=== PATIENT | female | born 1990 | race Caucasian/White ===

== ENCOUNTER 2016-09-12 20:01 | Emergency (ER) | payer BC ==
[2016-09-12] MEDS ORDERED: SODIUM CHLORIDE 0.9% 1,000 ML IV ONE (20:50)
[2016-09-12] MEDS ORDERED: HYDROmorphone 1 MG/ML 1 ML SYRINGE IVP STA (20:51)
--- NOTE | 2016-09-12 20:53 | ED ---
Back Pain HPI - General Chief Complaint: Back Pain/Injury Stated Complaint: Back Pain Time Seen by Provider: 09/12/16 20:17 Source: patient, RN notes reviewed Limitations: no limitations - History of Present Illness Initial Comments: Patient is a 26-year-old female presents to the emergency room for evaluation of bilateral flank/low back pain. Patient states pain began around 3:30 this morning. Patient states the pain is not subsiding. Patient does state she has a history of kidney stones. Patient states pain feels somewhat similar. Patient states that today she began developing burning during urination. Patient denies any history of STDs. He denies any abnormal vaginal discharge or discomfort. Patient denies abdominal pain. Patient denies fevers or chills. Patient states pain is worse with movement. Patient denies recent heavy lifting. Patient denies recent changes in physical activity. Patient denies recent falls or trauma to her low back. Patient denies headache or dizziness. Patient denies chest pain or shortness of breath. Patient denies any blood in the urine. - Related Data Home Medications Medication Instructions Recorded Confirmed Acetaminophen Tab [Tylenol Tab] 500 - 1,000 mg PO Q6HR PRN 09/12/16 09/12/16 Previous Rx's Medication Instructions Recorded Ciprofloxacin HCl [Cipro] 500 mg PO Q12HR 10 Days 09/12/16 HYDROcodone/APAP 5-325MG [Irwin 1 tab PO Q6HR PRN #12 tab 09/12/16 5-325] Ibuprofen [Motrin] 600 mg PO Q6HR PRN #20 tab 09/12/16 Ondansetron Odt [Zofran Odt] 4 mg PO Q8HR PRN #12 tab 09/12/16 Allergies Allergy/AdvReac Type Severity Reaction Status Date / Time No Known Allergies Allergy Verified 09/12/16 20:20 Review of Systems ROS Statement: Those systems with pertinent positive or pertinent negative responses have been documented in the HPI. ROS Other: All systems not noted in ROS Statement are negative. Past Medical History Past Medical History: No Reported History Additional Past Medical History / Comment(s): kidney stones History of Any Multi-Drug Resistant Organisms: None Reported Additional Past Surgical History / Comment(s): stent in kidney Past Psychological History: ADD/ADHD Smoking Status: Current every day smoker Past Alcohol Use History: Occasional Past Drug Use History: None Reported General Exam - General Exam Comments Initial Comments: Sitting up in exam room appears uncomfortable secondary to pain, no acute distress. Limitations: no limitations General appearance: alert, in no apparent distress Head exam: Present: atraumatic, normocephalic, normal inspection Eye exam: Present: normal appearance ENT exam: Present: normal exam Neck exam: Present: normal inspection Respiratory exam: Present: normal lung sounds bilaterally. Absent: respiratory distress Cardiovascular Exam: Present: normal rhythm, tachycardia, normal heart sounds GI/Abdominal exam: Present: soft, normal bowel sounds. Absent: distended, tenderness, guarding, rebound, rigid Extremities exam: Present: normal inspection Back exam: Present: normal inspection, CVA tenderness (R), CVA tenderness (L) Neurological exam: Present: alert, oriented X3, CN II-XII intact Psychiatric exam: Present: normal affect, normal mood Skin exam: Present: warm, dry, intact, normal color. Absent: rash Course Vital Signs 09/12/16 09/12/16 20:03 23:07 Temperature 99.0 F 99 F Pulse Rate 111 H 87 Respiratory 20 18 Rate Blood Pressure 135/65 115/67 O2 Sat by Pulse 99 98 Oximetry Medical Decision Making - Medical Decision Making Patient is 26-year-old female presents to emergency room for evaluation of bilateral flank pain and pain and burning during urination. Urinalysis significant urine for urinary tract infection. Patient given 1 g of Rocephin while in the emergency room. Patient states she is feeling much better. Will send patient home on antibiotics and have her follow-up with her primary care provider for reevaluation. Advised patient to return for any worsening symptoms , fevers. Patient states she understands everything that was discussed with her. Case discussed with Dr. Bhatt. - Lab Data Result diagrams: 09/12/16 20:22 09/12/16 20:22 Lab Results 09/12/16 09/12/16 09/12/16 Range/Units 20:22 20:22 20:22 WBC 8.0 (3.8-10.6) k/uL RBC 4.91 (3.80-5.40) m/uL Hgb 15.6 (11.4-16.0) gm/dL Hct 44.1 (34.0-46.0) % MCV 90.0 (80.0-100.0) fL MCH 31.9 (25.0-35.0) pg MCHC 35.4 (31.0-37.0) g/dL RDW 13.1 (11.5-15.5) % Plt Count 195 (150-450) k/uL Neutrophils % 77 % Lymphocytes % 13 % Monocytes % 6 % Eosinophils % 2 % Basophils % 1 % Neutrophils # 6.2 (1.3-7.7) k/uL Lymphocytes # 1.0 (1.0-4.8) k/uL Monocytes # 0.5 (0-1.0) k/uL Eosinophils # 0.1 (0-0.7) k/uL Basophils # 0.1 (0-0.2) k/uL Sodium 139 (137-145) mmol/L Potassium 3.6 (3.5-5.1) mmol/L Chloride 103 (98-107) mmol/L Carbon Dioxide 24 (22-30) mmol/L Anion Gap 12 mmol/L BUN 7 (7-17) mg/dL Creatinine 0.61 (0.52-1.04) mg/dL Est GFR (MDRD) Af Amer >60 (>60 ml/min/1.73 sqM) Est GFR (MDRD) Non-Af >60 (>60 ml/min/1.73 sqM) Glucose 101 H (74-99) mg/dL Calcium 9.1 (8.4-10.2) mg/dL Total Bilirubin 0.7 (0.2-1.3) mg/dL AST 24 (14-36) U/L ALT 26 (9-52) U/L Alkaline Phosphatase 61 (38-126) U/L Total Protein 7.1 (6.3-8.2) g/dL Albumin 4.5 (3.5-5.0) g/dL Urine Color Urine Appearance (Clear) Urine pH (5.0-8.0) Ur Specific [place] (1.001-1.035) Urine Protein (Negative) Urine Glucose (UA) (Negative) Urine Ketones (Negative) Urine Blood (Negative) Urine Nitrate (Negative) Urine Bilirubin (Negative) Urine Urobilinogen (<2.0) mg/dL Ur Leukocyte Esterase (Negative) Urine RBC (0-5) /hpf Urine WBC (0-5) /hpf Ur Squamous Epith Cells (0-4) /hpf Urine Bacteria (None) /hpf Urine Mucus (None) /hpf Urine HCG, Qual Not Detected (Not Detectd) 09/12/16 Range/Units 20:22 WBC (3.8-10.6) k/uL RBC (3.80-5.40) m/uL Hgb (11.4-16.0) gm/dL Hct (34.0-46.0) % MCV (80.0-100.0) fL MCH (25.0-35.0) pg MCHC (31.0-37.0) g/dL RDW (11.5-15.5) % Plt Count (150-450) k/uL Neutrophils % % Lymphocytes % % Monocytes % % Eosinophils % % Basophils % % Neutrophils # (1.3-7.7) k/uL Lymphocytes # (1.0-4.8) k/uL Monocytes # (0-1.0) k/uL Eosinophils # (0-0.7) k/uL Basophils # (0-0.2) k/uL Sodium (137-145) mmol/L Potassium (3.5-5.1) mmol/L Chloride (98-107) mmol/L Carbon Dioxide (22-30) mmol/L Anion Gap mmol/L BUN (7-17) mg/dL Creatinine (0.52-1.04) mg/dL Est GFR (MDRD) Af Amer (>60 ml/min/1.73 sqM) Est GFR (MDRD) Non-Af (>60 ml/min/1.73 sqM) Glucose (74-99) mg/dL Calcium (8.4-10.2) mg/dL Total Bilirubin (0.2-1.3) mg/dL AST (14-36) U/L ALT (9-52) U/L Alkaline Phosphatase (38-126) U/L Total Protein (6.3-8.2) g/dL Albumin (3.5-5.0) g/dL Urine Color Yellow Urine Appearance Turbid H (Clear) Urine pH 6.5 (5.0-8.0) Ur Specific [place] 1.028 (1.001-1.035) Urine Protein 1+ H (Negative) Urine Glucose (UA) Negative (Negative) Urine Ketones Negative (Negative) Urine Blood Negative (Negative) Urine Nitrate Negative (Negative) Urine Bilirubin Negative (Negative) Urine Urobilinogen 2.0 (<2.0) mg/dL Ur Leukocyte Esterase Large H (Negative) Urine RBC 3 (0-5) /hpf Urine WBC 25 H (0-5) /hpf Ur Squamous Epith Cells 61 H (0-4) /hpf Urine Bacteria Moderate H (None) /hpf Urine Mucus Few H (None) /hpf Urine HCG, Qual (Not Detectd) - Radiology Data Radiology results: report reviewed, image reviewed Disposition Clinical Impression: Urinary tract infection Disposition: HOME SELF-CARE Condition: Good Instructions: Urinary Tract Infection in Women (ED) Additional Instructions: Take antibiotics as directed. Take ibuprofen as in for pain. Take Irwin as needed for severe pain. Please follow up with primary care provider in 1-2 days. If any new symptom arises or symptoms worsen, return to ER as soon as possible. Prescriptions: HYDROcodone/APAP 5-325MG [Irwin 5-325] 1 tab PO Q6HR PRN #12 tab PRN Reason: Pain Ibuprofen [Motrin] 600 mg PO Q6HR PRN #20 tab PRN Reason: Pain Ondansetron Odt [Zofran Odt] 4 mg PO Q8HR PRN #12 tab PRN Reason: Nausea Ciprofloxacin HCl [Cipro] 500 mg PO Q12HR 10 Days Referrals: Anaid Rivas DO [Primary Care Provider] - 1-2 days Time of Disposition: 22:30
[2016-09-12] MEDS ORDERED: ACETAMINOPHEN IV (For NPO) 1,000 MG in EMPTY BAG 1 BAG IVPB STA (20:57)
[2016-09-12] MEDS ORDERED: METOCLOPRAMIDE 5 MG/ML 2 ML VIAL IVP STA (20:57)
[2016-09-12 20:59] LABS: Basophils # (A) 0.1 k/uL (0-0.2); Basophils % (A) 1 %; CH 31.8; CHCM 35.4; Eosinophils # (A) 0.1 k/uL (0-0.7); Eosinophils % (A) 2 %; HCT 44.1 % (34.0-46.0); HGB 15.6 gm/dL (11.4-16.0); Luc # (Auto) 0.19; Luc % (Auto) 2; Lymphocytes % (A) 13 %; MCH 31.9 pg (25.0-35.0); MCHC 35.4 g/dL (31.0-37.0); Mean Platelet Volume 7.6; Monocytes # (A) 0.5 k/uL (0-1.0); Monocytes % (A) 6 %; Neutrophils # (A) 6.2 k/uL (1.3-7.7); Neutrophils % (A) 77 %; RBC 4.91 m/uL (3.80-5.40); RDW 13.1 % (11.5-15.5); WBC (Perox) 7.93
[2016-09-12 21:02] LABS: Appearance,Urine Turbid (Clear); Bacteria,Urine Moderate /hpf; Bilirubin,Urine Negative (Negative); Glucose,Urine (UA) Negative (Negative); Ketones,Urine Negative (Negative); Leukocyte Esterase,Urine Large (Negative); Mucus,Urine Few /hpf; Nitrite,Urine Negative (Negative); PH, Urine 6.5 (5.0-8.0); Particle Count 18634; Protein,Urine 1+ (Negative); RBC,Urine 3 /hpf (0-5); Specific Gravity,Urine 1.028 (1.001-1.035); Squamous Epithelial Cell,Urine 61 /hpf (0-4); UA Billing (MACRO vs. MICRO) MICRO; WBC,Urine 25 /hpf (0-5)
[2016-09-12 21:09] LABS: ALT 26 U/L (9-52); AST 24 U/L (14-36); Alkaline Phosphatase 61 U/L (38-126); Anion Gap 12 mmol/L; Blood Urea Nitrogen 7 mg/dL (7-17); Calcium 9.1 mg/dL (8.4-10.2); Carbon Dioxide 24 mmol/L (22-30); Chloride 103 mmol/L (98-107); Glucose 101 mg/dL (74-99); Non-African American GFR(MDRD) >60 (>60 ml/min/1.73 sqM); Potassium 3.6 mmol/L (3.5-5.1); Sodium 139 mmol/L (137-145); Total Bilirubin 0.7 mg/dL (0.2-1.3); Total Protein 7.1 g/dL (6.3-8.2)
--- NOTE | 2016-09-12 21:23 | XR ---
EXAMINATION TYPE: XR KUB DATE OF EXAM: 09/12/2016 9:12 PM COMPARISON: NONE HISTORY: Low back pain TECHNIQUE: 2 views FINDINGS: Bowel gas pattern is normal. There is no sign of intestinal obstruction or pneumoperitoneum . Fecal pattern is normal. Lung bases are clear. There are no pathologic calcifications over the kidn eys. IMPRESSION: Nonacute abdomen.
[2016-09-12] MEDS: ONDANSETRON 4 MG/2 ML VIAL IVP STA ×2 (21:46→22:02)
[2016-09-12 23:08] VITALS: BP 115/67; PULSE 87; RESP 18; TEMP 99
== END 2016-09-12 23:09 | disposition home or self-care (01) ==
LOC: EC 20:01
DX: N39.0 Urinary tract infection, site not specified (principal); R00.0 Tachycardia, unspecified; Z87.891 Personal history of nicotine dependence; Z87.442 Personal history of urinary calculi
CPT/HCPCS: 99283 ×2; 96365 ×2; 96367 ×2; 96375 ×3; 36415; 80053; 85025; 81001; 81025; 74000; J2765; J2405; J0696; J1170; J0131

== ENCOUNTER 2017-01-30 20:25 | Emergency (ER) | payer OTHER, BC ==
[2017-01-30 20:33] VITALS: BP 137/88; PULSE 91; RESP 20; TEMP 97.4
[2017-01-30] MEDS ORDERED: KETOROLAC 60 MG/2 ML VIAL IM STA (20:41)
--- NOTE | 2017-01-30 21:14 | ED ---
Lower Extremity Injury HPI - General Chief Complaint: Extremity Injury, Lower Stated Complaint: hit by truck-[facility] Time Seen by Provider: 01/30/17 20:43 Source: patient, RN notes reviewed, old records reviewed Mode of arrival: ambulatory Limitations: no limitations - History of Present Illness Initial Comments: 26-year-old [facility] chief complaint of right thigh pain and knee pain after she was at work and was hit by a we'll follow. Patient reports that she was standing and a truck so we'll hit her leg. She reports that she felt like her knee gave out from her. She states that she's noticed some bruising over the top part of her leg. She denies any peripheral paresthesias. She reports pain with full extension of her knee. She reports she's never had any previous knee injuries. Denies any nausea, vomiting or hip pain, abdominal pain, or any other injuries. - Related Data Previous Rx's Medication Instructions Recorded Ibuprofen [Motrin] 600 mg PO Q6HR PRN #20 tab 01/30/17 traMADol HCl [Ultram] 50 mg PO Q6H PRN #15 tab 01/30/17 Allergies Allergy/AdvReac Type Severity Reaction Status Date / Time No Known Allergies Allergy Verified 01/30/17 20:33 Review of Systems ROS Statement: Those systems with pertinent positive or pertinent negative responses have been documented in the HPI. ROS Other: All systems not noted in ROS Statement are negative. Past Medical History Past Medical History: No Reported History Additional Past Medical History / Comment(s): kidney stones History of Any Multi-Drug Resistant Organisms: None Reported Past Surgical History: Tonsillectomy Additional Past Surgical History / Comment(s): stent in kidney Past Psychological History: ADD/ADHD, Anxiety Smoking Status: Current every day smoker Past Alcohol Use History: Occasional Past Drug Use History: None Reported General Exam - General Exam Comments Initial Comments: Well-appearing 26-year-old female. No acute distress. Limitations: no limitations General appearance: alert, in no apparent distress Head exam: Present: atraumatic, normocephalic, normal inspection Eye exam: Present: normal appearance, PERRL, EOMI. Absent: scleral icterus, conjunctival injection, periorbital swelling ENT exam: Present: normal exam, mucous membranes moist Neck exam: Present: normal inspection. Absent: tenderness, meningismus, lymphadenopathy Respiratory exam: Present: normal lung sounds bilaterally. Absent: respiratory distress, wheezes, rales, rhonchi, stridor Cardiovascular Exam: Present: regular rate, normal rhythm, normal heart sounds. Absent: systolic murmur, diastolic murmur, rubs, gallop, clicks GI/Abdominal exam: Present: soft, normal bowel sounds. Absent: distended, tenderness, guarding, rebound, rigid Extremities exam: Present: normal inspection, full ROM, normal capillary refill. Absent: tenderness, pedal edema, joint swelling, calf tenderness Back exam: Present: normal inspection Neurological exam: Present: alert, oriented X3, CN II-XII intact Psychiatric exam: Present: normal affect, normal mood Skin exam: Present: warm, dry, intact, normal color. Absent: rash Course Vital Signs 01/30/17 20:27 Temperature 97.4 F L Pulse Rate 91 Respiratory 20 Rate Blood Pressure 137/88 O2 Sat by Pulse 99 Oximetry Medical Decision Making - Medical Decision Making 26-year-old feel [facility] emergency Department chief complaint of right thigh pain and knee pain after she was at work and was hit by a we'll follow. Patient reports that she was standing and a truck so we'll hit her leg. She reports that she felt like her knee gave out from her. She states that she's noticed some bruising over the top part of her leg. Patient xrays are reviewed and negative for any acute process. Patient does have significant swelling over her leg and knee. Patient has limited range of motion of knee due to swelling. Discussed follow up with PCP and Orthopedic. Patient given a note for work, and advised to rest, ice and elebate it. Return parameters discussed. Disposition Clinical Impression: Right knee sprain, Contusion of right thigh Disposition: HOME SELF-CARE Condition: Good Instructions: Knee Pain (ED) Additional Instructions: Rest, ice, elevate extremity. Patient advised to follow-up with orthopedic if symptoms continue to persist. Take pain medication as directed. Ice the knee is much as possible and stay off of it. Prescriptions: Ibuprofen [Motrin] 600 mg PO Q6HR PRN #20 tab PRN Reason: Pain traMADol HCl [Ultram] 50 mg PO Q6H PRN #15 tab PRN Reason: Pain Referrals: Anaid Rivas DO [Primary Care Provider] - 1-2 days Feliciano Mike MD [STAFF PHYSICIAN] - 1-2 days Time of Disposition: 21:45
--- NOTE | 2017-01-30 21:56 | XR ---
EXAMINATION TYPE: XR femur RT, XR tibia fibula RT, XR knee complete RT DATE OF EXAM: 01/30/2017 CLINICAL HISTORY: Injury with bruising and pain. TECHNIQUE: Two views of the right leg and femur are obtained. 3 views of right knee are acquired. COMPARISON: None FINDINGS: There is no acute fracture or dislocation seen in the right femur. The right hip joint ap pears within normal limits. The overlying soft tissue appears unremarkable. Images of right knee show no acute fracture or dislocation. Tricompartment joint spaces are maintaine d. Overlying soft tissue is unremarkable. Images of right leg show no acute fracture or dislocation. The right ankle joint is within normal [place] its. Overlying soft tissue is unremarkable. IMPRESSION: There is no acute fracture or dislocation in the right leg, knee, or femur.
== END 2017-01-30 22:08 | disposition home or self-care (01) ==
LOC: EC 20:25
DX: S83.91XA Sprain of unspecified site of right knee, initial encounter (principal); S70.11XA Contusion of right thigh, initial encounter; F17.200 Nicotine dependence, unspecified, uncomplicated; V04.99XA Pedestrian with other conveyance injured in collision with heavy transport vehicle or bus, unspecified whether traffic or nontraffic accident, initial encounter; Y92.69 Other specified industrial and construction area as the place of occurrence of the external cause; Y93.89 Activity, other specified; Y99.0 Civilian activity done for income or pay
CPT/HCPCS: 73552; 73590; 73562; 99284; 96372; J1885

== ENCOUNTER → 2017-07-07 | Outpatient (CLI) | payer BC ==
--- NOTE | 2017-07-07 11:32 | CT ---
EXAMINATION TYPE: CT abdomen pelvis w con DATE OF EXAM: 07/07/2017 HISTORY: Diarrhea CT DLP: 1702mGycm Automated Exposure Control for Dose Reduction was Utilized. CONTRAST: CT scan of the abdomen and pelvis is performed with IV Contrast, patient injected with 100 mL of Omni paque 300. COMPARISON: Abdominal ultrasound and HIDA scan dated 04/26/2017 and 05/08/2017 respectively FINDINGS: LUNG BASES: Minimal bibasilar subsegmental atelectasis is present. LIVER/GB: The liver is of homogeneous attenuation, similar to that of the splenic parenchyma without evidence of hepatic steatosis other than a focal wedge-shaped area of hypoattenuation in segment 4A n ear the fissure for the falciform ligament, most commonly related to focal fatty infiltration. PANCREAS: No significant abnormality is seen. No pancreatic ductal dilatation. SPLEEN: No significant abnormality is seen. The spleen is nonenlarged measuring 10.2 cm in craniocaud al dimension. ADRENALS: No significant abnormality is seen. Adrenal glands are symmetric without nodularity. KIDNEYS: No significant abnormality is seen. The kidneys enhance and excrete symmetrically without hy dronephrosis. BOWEL: Although the right hemicolon and hepatic flexure are decompressed and do not contain oral cont rast there is slight bowel wall thickening and suggestion of intramural fat. These findings are also seen within the splenic flexure. This could be an incidental finding or relate to sequela of inflamma tory bowel disease in a patient with persistent abdominal pain. UTERUS/ADNEXA: Follicular changes are seen of the ovaries with right paraovarian and posterior cul-de -sac free fluid. Low-density of the endometrium likely relates to the phase of menses. LYMPH NODES: No greater than 1cm abdominal or pelvic lymph nodes are appreciated. Scattered nonenlarg ed mesenteric lymph nodes are present. OSSEOUS STRUCTURES: Minimal asymmetric right greater than left sacroiliac joint sclerosis is noted. OTHER: There is a small fat filled umbilical hernia measuring 3 cm with a 7 mm neck present. IMPRESSION: 1. Mild bowel wall thickening and suggestion of intramural FAT of the hepatic and splenic flexures co uld be an incidental finding related to incomplete distention or sequela of inflammatory bowel diseas e in a patient with persistent abdominal pain. 2. Small amount of right paraovarian and posterior cul-de-sac free fluid, likely physiologic in natur e. 3. Minimal bibasilar subsegmental atelectasis.
== END | disposition home or self-care (01) ==
LOC: RADCTMAIN 10:55
PROVIDERS: ATTEND Family Medicine
DX: K63.89 Other specified diseases of intestine (principal); N83.8 Other noninflammatory disorders of ovary, fallopian tube and broad ligament
CPT/HCPCS: 74177; Q9967

== ENCOUNTER 2017-07-20 14:27 | Emergency (ER) | payer BC ==
[2017-07-20 14:53] VITALS: BP 147/83; RESP 20; TEMP 98.3
[2017-07-20] MEDS ORDERED: IPRATROPIUM-ALBUTEROL 3 ML NEB INHALATION STA (14:59)
[2017-07-20] MEDS ORDERED: BENZONATATE 100 MG CAP PO STA (14:59)
--- NOTE | 2017-07-20 15:01 | ED ---
General Adult HPI - General Chief complaint: Upper Respiratory Infection Stated complaint: cough Time Seen by Provider: 07/20/17 14:54 Source: patient, RN notes reviewed Mode of arrival: ambulatory Limitations: no limitations - History of Present Illness Initial comments: 26-year-old female presents to the department with a chief complaint of cough cold like symptoms. This started about 3-4 days ago. She was started on steroids and prednisone. She states that she continues to have this cough. She states she has a history of smoking but states she has not been smoking recently. She denies any high fevers with this she denies any sputum production. Patient was concerned due to the continued pain so she thought that she should be evaluated. Patient denies any recent fever, chills, chest pain, back pain, abdominal pain, nausea vomiting, numbness or tingling, dysuria or hematuria, constipation or diarrhea, headaches or visual changes, or any other current symptoms. - Related Data Home Medications Medication Instructions Recorded Confirmed Azithromycin [Zithromax Z-pack] See Taper PO DIRECTED 07/20/17 07/20/17 Sucralfate [Carafate] 1 gm PO BID 07/20/17 07/20/17 Previous Rx's Medication Instructions Recorded Albuterol Inhaler [Ventolin Hfa 1 - 2 puff INHALATION Q4-6H PRN #1 07/20/17 Inhaler] inhaler Benzonatate [Tessalon Perles] 100 mg PO TID #20 cap 07/20/17 Allergies Allergy/AdvReac Type Severity Reaction Status Date / Time No Known Allergies Allergy Verified 07/20/17 15:01 Review of Systems ROS Statement: Those systems with pertinent positive or pertinent negative responses have been documented in the HPI. ROS Other: All systems not noted in ROS Statement are negative. Past Medical History Past Medical History: No Reported History Additional Past Medical History / Comment(s): kidney stones History of Any Multi-Drug Resistant Organisms: None Reported Past Surgical History: Tonsillectomy Additional Past Surgical History / Comment(s): stent in kidney Past Psychological History: ADD/ADHD, Anxiety Smoking Status: Current some day smoker Past Alcohol Use History: Occasional Past Drug Use History: None Reported General Exam - General Exam Comments Initial Comments: General exam: Alert, active, comfortable in no apparent distress Head: Normocephalic Eyes: Normal reaction of pupils, equal size, normal range of extraocular motion Ears: normal external ear canals, pink tympanic membranes with normal cone of light Nose: clear with pink turbinates Throat: no erythema or exudates with normal sized tonsils Neck: no masses, no nuchal rigidity Chest: no chest wall deformity Lungs: equal air entry with no crackles, expiratory wheeze CVS: S1 and S2 normal with no audible mumurs, regular rhythm Abdomen: no hepatosplenomegaly, normal bowel sounds, no guarding or rigidity Spine: no scoliosis or deformity Skin: no rashes Neurological: No focal deficits, tone is normal in all 4 extremities Limitations: no limitations Course Vital Signs 07/20/17 07/20/17 07/20/17 14:51 15:14 15:24 Temperature 98.3 F Pulse Rate 75 98 79 Respiratory 20 Rate Blood Pressure 147/83 O2 Sat by Pulse 97 Oximetry Medical Decision Making - Medical Decision Making 26-year-old female presents for cough cold like symptoms. This time patient does have a wheeze on exam. At this time patient was re-assess. Wheezing has improved. Cough has improved as well. At this time we was patient on albuterol and Tessalon Perles for home. We did discuss follow-up we discussed no smoking and we did educate about smoking patient. We discussed return parameters all questions. Patient stated that she understood and she is planned. She will be discharged. - Radiology Data Radiology results: report reviewed, image reviewed Disposition Clinical Impression: Acute bronchitis Disposition: HOME SELF-CARE Condition: Stable Instructions: Acute Bronchitis (ED) Additional Instructions: Please use medication as discussed. Please follow up with family doctor if symptoms have not improved over the next two days. Please return to the emergency room if your symptoms increase or worsen or for any other concerns. Prescriptions: Albuterol Inhaler [Ventolin Hfa Inhaler] 1 - 2 puff INHALATION Q4-6H PRN #1 inhaler PRN Reason: Cough Benzonatate [Tessalon Perles] 100 mg PO TID #20 cap Referrals: Dimple Liao DO [Primary Care Provider] - 1-2 days Time of Disposition: 15:45
--- NOTE | 2017-07-20 15:14 | XR ---
EXAMINATION TYPE: XR chest 2V DATE OF EXAM: 07/20/2017 COMPARISON: 02/09/2015 TECHNIQUE: PA and lateral views submitted. HISTORY: Cough and congestion FINDINGS: The lungs are clear and there is no pneumothorax, pleural effusion, or focal pneumonia. Hypertrophi c and degenerative change spine. No overt failure. IMPRESSION: 1. No acute process.
[2017-07-20 15:27] VITALS: PULSE 79
== END 2017-07-20 15:49 | disposition home or self-care (01) ==
LOC: EC 14:27
DX: J20.9 Acute bronchitis, unspecified (principal); F17.200 Nicotine dependence, unspecified, uncomplicated; Z79.899 Other long term (current) drug therapy
CPT/HCPCS: 71046; 94640; 99283

== ENCOUNTER 2017-08-21 10:04 | Day surgery (SDC) | payer BC ==
[2017-08-17 13:01] VITALS: BMI 36.5
[~2017-08-21 10:04] MED LIST: LACTATED RINGERS 1,000 ML IV SCH; LIDOCAINE 1% 20 ML VIAL (10MG/ML) FOR IV START INTRADERMA PRN
[2017-08-21 10:39] VITALS: RESP 16; TEMP 98.1
[2017-08-21] MEDS ORDERED: PROPOFOL 10 MG/ML 20 ML VIAL IV ONE (10:41)
--- NOTE | 2017-08-21 10:44 | P.GSHP ---
History of Present Illness H&P Date: 08/21/17 Chief Complaint: Diarrhea, abdominal pain This is a 27-year-old female referred from Dr. vogel. Patient resents today for colonoscopy. She's had issues with chronic diarrhea and abdominal pain. Past Medical History Past Medical History: No Reported History Additional Past Medical History / Comment(s): kidney stones History of Any Multi-Drug Resistant Organisms: None Reported Past Surgical History: Tonsillectomy Additional Past Surgical History / Comment(s): stent in kidney Past Anesthesia/Blood Transfusion Reactions: No Reported Reaction Smoking Status: Former smoker - Past Family History Mother Family Medical History: No Reported History Medications and Allergies Home Medications Medication Instructions Recorded Confirmed Type Sucralfate [Carafate] 1 gm PO BID 07/20/17 08/21/17 History Ciprofloxacin HCl [Cipro] 500 mg PO BID 08/17/17 08/21/17 History metroNIDAZOLE [Flagyl] 500 mg PO TID 08/17/17 08/21/17 History Allergies Allergy/AdvReac Type Severity Reaction Status Date / Time No Known Allergies Allergy Verified 08/17/17 12:57 Surgical - Exam Vital Signs Temp Pulse Resp Pulse Ox 98.1 F 83 16 96 08/21/17 10:37 08/21/17 10:37 08/21/17 10:37 08/21/17 10:37 - General well developed, no distress - Eyes PERRL - ENT normal pinna - Neck no masses - Respiratory normal expansion - Cardiovascular Rhythm: regular - Abdomen Abdomen: soft, non tender Assessment and Plan Assessment: Chronic diarrhea, dull pain. We'll perform colonoscopy to evaluate for colitis.
--- NOTE | 2017-08-21 11:01 | P.OP ---
Date of Procedure: 08/21/17 Preoperative Diagnosis: Diarrhea Postoperative Diagnosis: Normal colonoscopy with random biopsies of colon Procedure(s) Performed: Colonoscopy Anesthesia: MAC Surgeon: Loco Wilhelm Pathology: other (Right, transverse, left, sigmoid, rectum) Condition: stable Disposition: PACU Description of Procedure: The patient's placed on the endoscopy table in the lateral position. She received IV sedation. Digital rectal exam was performed which revealed no ebonized. The flexible colonoscope was then placed patient anus and passed throughout the entire colon. The ileocecal valve was visualized. The cecum appeared normal. The right colon appeared normal. A biopsies performed. The transverse colon appeared normal. And a biopsies performed. The descending colon appeared normal. And a biopsy was performed. The sigmoid colon was normal and a biopsies performed. Scope was then brought back the rectum and this appeared normal and a biopsies performed. There is known to any inflammatory changes of the colon. Scope was withdrawn from patient.
[2017-08-21 11:27] VITALS: BP 107/64; PULSE 63
== END 2017-08-21 12:06 | disposition home or self-care (01) ==
LOC: ORWHC2ENDO 10:04
PROVIDERS: ATTEND Surgery
DX: R19.7 Diarrhea, unspecified (principal); R10.9 Unspecified abdominal pain; K21.9 Gastro-esophageal reflux disease without esophagitis; Z87.891 Personal history of nicotine dependence; N20.0 Calculus of kidney; Z96.0 Presence of urogenital implants; F90.9 Attention-deficit hyperactivity disorder, unspecified type; F41.9 Anxiety disorder, unspecified; Z79.2 Long term (current) use of antibiotics; Z79.899 Other long term (current) drug therapy
CPT/HCPCS: 81025; 88305; 45380; J2704

== ENCOUNTER 2017-09-14 10:35 | Emergency (ER) | payer BC ==
[2017-09-14] MEDS ORDERED: IOHEXOL 350 MG/ML 25 ML BOTTLE (ORAL USE) PO PRN (11:02)
[2017-09-14] MEDS ORDERED: RX INFO: IV CONTRAST WAS GIVEN 1 EACH MISC MISCELLANE PRN (11:02)
--- NOTE | 2017-09-14 11:05 | ED ---
General Adult HPI - General Source: patient, RN notes reviewed Mode of arrival: wheelchair Limitations: no limitations <Mercedes Thompson - Last Filed: 09/14/17 14:05> <Gerardo Larose - Last Filed: 09/14/17 14:17> - General Chief complaint: Abdominal Pain Stated complaint: RECTAL BLEEDING, SENT FROM DOCTOR Time Seen by Provider: 09/14/17 10:49 - History of Present Illness Initial comments: 27-year-old female presents to the emergency department with a chief complaint of right red blood per rectum. Patient states that she had a stabbing pain in her abdomen and then she noticed bright red blood in the toilet today. She states that she has been having this stabbing pain. Long time done multiple testing on her and cannot seem to figure out what's going on. She states the bright red blood was new for her she went to her doctor and was referred here. She denies any high fever she denies any chills with this. She denies any nausea or vomiting. They were concerned due to the continued pain and the tenderness of her abdomen since they thought that she should be seen. Patient denies any recent fever, chills, shortness of breath, chest pain, back pain, nausea vomiting, numbness or tingling, dysuria or hematuria, constipation or diarrhea, headaches or visual changes, or any other current symptoms. (Mercedes Thompson) - Related Data Home Medications Medication Instructions Recorded Confirmed Sucralfate [Carafate] 1 gm PO BID 07/20/17 09/14/17 Phenobarb/Hyoscy/Atropine/Scop 16.2 - 32.4 mg PO Q6H 09/14/17 09/14/17 [ Elixir] Previous Rx's Medication Instructions Recorded Psyllium Husk 100% [Metamucil 6 gm PO BID 30 Days packet 09/14/17 Packet] Allergies Allergy/AdvReac Type Severity Reaction Status Date / Time No Known Allergies Allergy Verified 09/14/17 10:55 Review of Systems ROS Other: All systems not noted in ROS Statement are negative. <Mercedes Thompson - Last Filed: 09/14/17 14:05> ROS Other: All systems not noted in ROS Statement are negative. <Gerardo Larose - Last Filed: 09/14/17 14:17> ROS Statement: Those systems with pertinent positive or pertinent negative responses have been documented in the HPI. Past Medical History Past Medical History: No Reported History Additional Past Medical History / Comment(s): kidney stones History of Any Multi-Drug Resistant Organisms: None Reported Past Surgical History: Tonsillectomy Additional Past Surgical History / Comment(s): stent in kidney Past Anesthesia/Blood Transfusion Reactions: No Reported Reaction Past Psychological History: ADD/ADHD, Anxiety Smoking Status: Former smoker Past Alcohol Use History: Occasional Past Drug Use History: None Reported - Past Family History Mother Family Medical History: No Reported History <Mercedes Thompson - Last Filed: 09/14/17 14:05> General Exam Limitations: no limitations <Mercedes Thompson - Last Filed: 09/14/17 14:05> <Gerardo Larose - Last Filed: 09/14/17 14:17> - General Exam Comments Initial Comments: General: The patient is awake and alert, in no distress, and does not appear acutely ill. Eye: Pupils are equal, round and reactive to light, extra-ocular movements are intact; there is normal conjunctiva bilaterally. No signs of icterus. Ears, nose, mouth and throat: There are moist mucous membranes and no oral lesions. Neck: The neck is supple, there is no tenderness. Cardiovascular: There is a regular rate and rhythm. No murmur, rub or gallop is appreciated. Respiratory: Lungs are clear to auscultation, respirations are non-labored, breath sounds are equal. No wheezes, stridor, rales, or rhonchi. Gastrointestinal: Soft, non-distended, diffusely tender abdomen without masses or organomegaly noted. Minimal rebound, no guarding present. No CVA tenderness. Bowel sounds are unremarkable. Back: There is no tenderness to palpation in the midline. There is no obvious deformity. No rashes noted. Musculoskeletal: Normal ROM, no tenderness, There is no pedal edema. There is no calf tenderness or swelling. Sensation intact. Pulses equal bilaterally 2+. Neurological: CN II-XII intact, There are no obvious motor or sensory deficits. Coordination appears grossly intact. Speech is normal. Skin: Skin is warm and dry and no rashes or lesions are noted. Psychiatric: Cooperative, appropriate mood & affect, normal judgment. (Mercedes Thompson) Vital Signs 09/14/17 09/14/17 10:51 14:08 Temperature 97.6 F 97.9 F Pulse Rate 78 70 Respiratory 18 16 Rate Blood Pressure 135/85 118/79 O2 Sat by Pulse 98 98 Oximetry Medical Decision Making - Lab Data Result diagrams: 09/14/17 11:15 09/14/17 11:15 - Radiology Data Radiology results: report reviewed, image reviewed <Mercedes Thompson - Last Filed: 09/14/17 14:05> - Lab Data Result diagrams: 09/14/17 11:15 09/14/17 11:15 <Gerardo Larose - Last Filed: 09/14/17 14:17> - Medical Decision Making 27-year-old female presents for abdominal pain. At this time patient's CAT scan was reviewed as well as lab work. Dr. Stahl was contacted regarding the cases well. The patient can go home. Patient is comfortable with this and her belly pain has improved. She has had no additional rectal bleeding here. This and he like her started on Metamucil. We did discuss follow-up return parameters. Patient is agreement plan all questions have been answered. She will be discharged. (Mercedes Thompson) The patient was seen and examined. All diagnostics are reviewed. Case is discussed with Dr. Wilhelm. He is agreeable with discharge and having her follow-up (Gerardo Larose) - Lab Data Lab Results 09/14/17 09/14/17 09/14/17 Range/Units 11:15 11:15 11:15 WBC 6.0 (3.8-10.6) k/uL RBC 4.66 (3.80-5.40) m/uL Hgb 14.3 (11.4-16.0) gm/dL Hct 41.9 (34.0-46.0) % MCV 89.9 (80.0-100.0) fL MCH 30.7 (25.0-35.0) pg MCHC 34.1 (31.0-37.0) g/dL RDW 13.1 (11.5-15.5) % Plt Count 259 (150-450) k/uL Neutrophils % 58 % Lymphocytes % 31 % Monocytes % 6 % Eosinophils % 2 % Basophils % 1 % Neutrophils # 3.4 (1.3-7.7) k/uL Lymphocytes # 1.9 (1.0-4.8) k/uL Monocytes # 0.4 (0-1.0) k/uL Eosinophils # 0.1 (0-0.7) k/uL Basophils # 0.0 (0-0.2) k/uL PT (9.0-12.0) sec INR (<1.2) APTT (22.0-30.0) sec Sodium 142 (137-145) mmol/L Potassium 4.5 (3.5-5.1) mmol/L Chloride 105 (98-107) mmol/L Carbon Dioxide 24 (22-30) mmol/L Anion Gap 13 mmol/L BUN 10 (7-17) mg/dL Creatinine 0.60 (0.52-1.04) mg/dL Est GFR (CKD-EPI)AfAm >90 (>60 ml/min/1.73 sqM) Est GFR (CKD-EPI)NonAf >90 (>60 ml/min/1.73 sqM) Glucose 88 (74-99) mg/dL Plasma Lactic Acid Oli 0.6 L (0.7-2.0) mmol/L Calcium 9.8 (8.4-10.2) mg/dL Total Bilirubin 0.5 (0.2-1.3) mg/dL AST 53 H (14-36) U/L ALT 39 (9-52) U/L Alkaline Phosphatase 60 (38-126) U/L Total Protein 7.4 (6.3-8.2) g/dL Albumin 4.8 (3.5-5.0) g/dL Amylase 59 (30-110) U/L Lipase 100 (23-300) U/L Urine Color Urine Appearance (Clear) Urine pH (5.0-8.0) Ur Specific [place] (1.001-1.035) Urine Protein (Negative) Urine Glucose (UA) (Negative) Urine Ketones (Negative) Urine Blood (Negative) Urine Nitrite (Negative) Urine Bilirubin (Negative) Urine Urobilinogen (<2.0) mg/dL Ur Leukocyte Esterase (Negative) Urine HCG, Qual (Not Detectd) 09/14/17 09/14/17 09/14/17 Range/Units 11:15 11:54 11:54 WBC (3.8-10.6) k/uL RBC (3.80-5.40) m/uL Hgb (11.4-16.0) gm/dL Hct (34.0-46.0) % MCV (80.0-100.0) fL MCH (25.0-35.0) pg MCHC (31.0-37.0) g/dL RDW (11.5-15.5) % Plt Count (150-450) k/uL Neutrophils % % Lymphocytes % % Monocytes % % Eosinophils % % Basophils % % Neutrophils # (1.3-7.7) k/uL Lymphocytes # (1.0-4.8) k/uL Monocytes # (0-1.0) k/uL Eosinophils # (0-0.7) k/uL Basophils # (0-0.2) k/uL PT 10.4 (9.0-12.0) sec INR 1.1 (<1.2) APTT 27.2 (22.0-30.0) sec Sodium (137-145) mmol/L Potassium (3.5-5.1) mmol/L Chloride (98-107) mmol/L Carbon Dioxide (22-30) mmol/L Anion Gap mmol/L BUN (7-17) mg/dL Creatinine (0.52-1.04) mg/dL Est GFR (CKD-EPI)AfAm (>60 ml/min/1.73 sqM) Est GFR (CKD-EPI)NonAf (>60 ml/min/1.73 sqM) Glucose (74-99) mg/dL Plasma Lactic Acid Oli (0.7-2.0) mmol/L Calcium (8.4-10.2) mg/dL Total Bilirubin (0.2-1.3) mg/dL AST (14-36) U/L ALT (9-52) U/L Alkaline Phosphatase (38-126) U/L Total Protein (6.3-8.2) g/dL Albumin (3.5-5.0) g/dL Amylase (30-110) U/L Lipase (23-300) U/L Urine Color Colorless Urine Appearance Clear (Clear) Urine pH 6.0 (5.0-8.0) Ur Specific [place] 1.003 (1.001-1.035) Urine Protein Negative (Negative) Urine Glucose (UA) Negative (Negative) Urine Ketones Negative (Negative) Urine Blood Negative (Negative) Urine Nitrite Negative (Negative) Urine Bilirubin Negative (Negative) Urine Urobilinogen <2.0 (<2.0) mg/dL Ur Leukocyte Esterase Negative (Negative) Urine HCG, Qual Not Detected (Not Detectd) Disposition Time of Disposition: 14:07 <Mercedes Thompson - Last Filed: 09/14/17 14:05> <Gerardo Larose - Last Filed: 09/14/17 14:17> Clinical Impression: Diverticulosis Disposition: HOME SELF-CARE Condition: Stable Instructions: Diverticulosis (ED) Additional Instructions: Please use medication as discussed. Please follow up with family doctor if symptoms have not improved over the next two days. Please return to the emergency room if your symptoms increase or worsen or for any other concerns. Please follow up with Dr. Aguiar at 1:00 PM on Monday. Prescriptions: Psyllium Husk 100% [Metamucil Packet] 6 gm PO BID 30 Days packet Referrals: Dimple Liao DO [Primary Care Provider] - 1-2 days Loco Wilhelm MD [STAFF PHYSICIAN] - 1-2 days
[2017-09-14 11:38] LABS: INR 1.1 (<1.2); Partial Thromboplastin Time 27.2 sec (22.0-30.0); Prothrombin Time 10.4 sec (9.0-12.0)
[2017-09-14 11:42] LABS: ALT 39 U/L (9-52); AST 53 U/L (14-36); Albumin 4.8 g/dL (3.5-5.0); Alkaline Phosphatase 60 U/L (38-126); Amylase 59 U/L (30-110); Anion Gap 13 mmol/L; Blood Urea Nitrogen 10 mg/dL (7-17); Calcium 9.8 mg/dL (8.4-10.2); Carbon Dioxide 24 mmol/L (22-30); Chloride 105 mmol/L (98-107); Glucose 88 mg/dL (74-99); Lipase 100 U/L (23-300); Potassium 4.5 mmol/L (3.5-5.1); Sodium 142 mmol/L (137-145); Total Bilirubin 0.5 mg/dL (0.2-1.3); Total Protein 7.4 g/dL (6.3-8.2)
[2017-09-14 11:52] LABS: Basophils % (A) 1 %; Eosinophils # (A) 0.1 k/uL (0-0.7); Eosinophils % (A) 2 %; HCT 41.9 % (34.0-46.0); HGB 14.3 gm/dL (11.4-16.0); Lymphocytes # (A) 1.9 k/uL (1.0-4.8); Lymphocytes % (A) 31 %; MCH 30.7 pg (25.0-35.0); MCHC 34.1 g/dL (31.0-37.0); MCV 89.9 fL (80.0-100.0); Monocytes # (A) 0.4 k/uL (0-1.0); Monocytes % (A) 6 %; Neutrophils # (A) 3.4 k/uL (1.3-7.7); Neutrophils % (A) 58 %; Platelet Count 259 k/uL (150-450); RBC 4.66 m/uL (3.80-5.40); RDW 13.1 % (11.5-15.5)
[2017-09-14 12:25] LABS: Appearance,Urine Clear (Clear); Bilirubin,Urine Negative (Negative); Blood,Urine Negative (Negative); Color,Urine Colorless; Glucose,Urine (UA) Negative (Negative); Ketones,Urine Negative (Negative); Leukocyte Esterase,Urine Negative (Negative); Protein,Urine Negative (Negative); Specific Gravity,Urine 1.003 (1.001-1.035); Urobilinogen,Urine <2.0 mg/dL (<2.0)
--- NOTE | 2017-09-14 13:38 | CT ---
EXAMINATION TYPE: CT abdomen pelvis w con DATE OF EXAM: 09/14/2017 COMPARISON: 05/07/2017 INDICATION: Patient complains of diarrhea, periumbilical pain, and bloody stools. DLP: 1216.7 mGycm, Automated exposure control for dose reduction was used. CONTRAST: 100 mL of Omnipaque 300. Study performed with Oral Contrast TECHNIQUE: Axial images were obtained from above the diaphragm to the pubic rami in the axial plane a t 5 mm thick sections. Reconstructed images are reviewed on the computer in the coronal plane. FINDINGS: Limited CT sections are obtained the lung bases. The lung bases are clear. CT ABDOMEN: Liver: Normal Spleen: Normal Pancreas: Normal Adrenal glands: The adrenal glands are normal. Gallbladder: Normal Kidneys: No masses are evident. No hydronephrosis is present. No cysts are present. Delayed images were obtained through the kidneys, which remain unremarkable. Aorta: Normal Inferior vena cava: Normal. CT PELVIS: Periumbilical hernia containing mesenteric fat is present. Loops of bowel within the abdomen and pelvis are normal. Diverticular changes are within the sigmo id colon. There are loops of bowel which are incompletely distended or lack oral contrast limiting th eir evaluation. Appendix: Normal as visualized. Urinary bladder: Normal. Genitourinary structures: Uterus and adnexal regions appear normal. Osseous structures: No suspicious lytic or sclerotic lesions. IMPRESSIONS: 1. Sigmoid diverticulosis without acute diverticulitis
[2017-09-14 14:09] VITALS: BP 118/79; PULSE 70; RESP 16; TEMP 97.9
== END 2017-09-14 14:23 | disposition home or self-care (01) ==
LOC: EC 10:35
DX: K57.90 Diverticulosis of intestine, part unspecified, without perforation or abscess without bleeding (principal); Z87.891 Personal history of nicotine dependence; Z79.899 Other long term (current) drug therapy
CPT/HCPCS: 36415; 80053; 82150; 83605; 83690; 85025; 85610; 85730; 81003; 81025; 87086; 74177; 99284; Q9967

== ENCOUNTER → 2018-11-16 | Outpatient (CLI) | payer BC ==
--- NOTE | 2018-11-16 14:51 | MR ---
EXAMINATION TYPE: MR lumbar spine wo con DATE OF EXAM: 11/16/2018 COMPARISON: None HISTORY: 28-year-old female Low back pain TECHNIQUE: Multiplanar, multisequence images of the lumbar spine were acquired. FINDINGS: Vertebral body heights are preserved and alignment is maintained. Very mild intravertebral disc bulging from L3 through S1 levels. Disc spaces are maintained. Mild atr ophy lower lumbar spine. No pars interarticularis defect. No suspicious bone marrow replacement. Conus medullaris is normal. Hypertrophic facet arthropathy is present lower lumbar spine. On the right at L4-L5, there is a 6 mm synovial cyst from the facet joint projecting posteriorly. No prevertebral or paravertebral soft tissue. No focal disc herniation or significant spinal canal or neural foraminal stenosis. IMPRESSION: 1. Minimal intervertebral disc bulging from L3 through S1 levels. No focal disc herniation or signifi cant spinal canal or neuroforaminal stenosis. 2. Hypertrophic facet arthropathy lower lumbar spine. These changes are somewhat out of proportion to the patient's age. For example, on the right at L4-L5, there is a 6 mm synovial cyst projecting post eriorly from the facet joint.
== END | disposition home or self-care (01) ==
LOC: RADMRIMAIN 06:42
PROVIDERS: ATTEND Family Medicine
DX: M51.27 Other intervertebral disc displacement, lumbosacral region (principal); M46.96 Unspecified inflammatory spondylopathy, lumbar region
CPT/HCPCS: 72148

== ENCOUNTER 2019-02-21 23:17 | Emergency (ER) | payer BC ==
[2019-02-21 23:38] VITALS: BP 152/88; PULSE 76; RESP 20
[2019-02-21 23:47] VITALS: TEMP 98.2
[2019-02-22] MEDS ORDERED: AMOXIC-POT CLAV 875MG STARTER 2 EACH TABLET PO STA (00:09)
[2019-02-22] MEDS ORDERED: MUPIROCIN 2% OINT 22 GM TUBE TOPICAL STA (00:09)
[2019-02-22] MEDS ORDERED: IBUPROFEN 600 MG STARTER PACK 4 TAB BTL PO STA (00:10)
--- NOTE | 2019-02-22 00:12 | ED ---
ENT HPI - General Chief complaint: ENT Stated complaint: Swollen Gland Throat Lft Side Time Seen by Provider: 02/21/19 23:52 Source: patient, family Mode of arrival: ambulatory Limitations: no limitations - History of Present Illness Initial comments: 28-year-old female patient presents to the emergency department today for evaluation of left-sided neck swelling and pain. Patient states this started 3 days ago and has been worsening. States that the area is tender to touch, hurts to turn her head, or swallow. She denies any sore throat, fever, or chills with this. Denies any nasal congestion. She is also reporting painful scabbed lesions to the left nasal passage. She is unsure what these could be from. Denies any nasal bleeding. Denies headache, blurred vision, or double vision. Patient denies any recent rash, shortness breath, chest pain, abdominal pain, nausea, vomiting, diarrhea, constipation, back pain, numbness, tingling, dizzin ess, weakness, hematuria, dysuria, urinary urgency, urinary frequency, headache, visual changes, or any other complaints. Denies chance of . Denies dry mouth. - Related Data Home Medications Medication Instructions Recorded Confirmed Sucralfate [Carafate] 1 gm PO BID 07/20/17 09/14/17 Phenobarb/Hyoscy/Atropine/Scop 16.2 - 32.4 mg PO Q6H 09/14/17 09/14/17 [ Elixir] Previous Rx's Medication Instructions Recorded Psyllium Husk 100% [Metamucil 6 gm PO BID 30 Days packet 09/14/17 Packet] Amoxic-Pot Clav 875-125Mg 1 tab PO Q12HR #20 tablet 02/22/19 [Augmentin 875-125] Ibuprofen 800 mg PO TID PRN #30 tablet 02/22/19 Allergies Allergy/AdvReac Type Severity Reaction Status Date / Time No Known Allergies Allergy Verified 02/21/19 23:38 Review of Systems ROS Statement: Those systems with pertinent positive or pertinent negative responses have been documented in the HPI. ROS Other: All systems not noted in ROS Statement are negative. Past Medical History Past Medical History: No Reported History Additional Past Medical History / Comment(s): kidney stones History of Any Multi-Drug Resistant Organisms: None Reported Past Surgical History: Tonsillectomy Additional Past Surgical History / Comment(s): stent in kidney Past Anesthesia/Blood Transfusion Reactions: No Reported Reaction Past Psychological History: ADD/ADHD, Anxiety Smoking Status: Former smoker Past Alcohol Use History: Occasional Past Drug Use History: None Reported - Past Family History Mother Family Medical History: No Reported History General Exam Limitations: no limitations General appearance: alert, in no apparent distress, other (This is a well- developed, well-nourished adult female patient in no acute distress. Vital signs upon presentation are temperature 98.5F, pulse 76, respirations 20, blood pressure 152/88, pulse ox 97% on room air.) Eye exam: Present: normal appearance, PERRL, EOMI. Absent: scleral icterus, conjunctival injection, periorbital swelling ENT exam: Present: normal oropharynx, mucous membranes moist, TM's normal bilaterally, other (There is tenderness over the floor of the mouth on the left side.). Absent: normal exam Respiratory exam: Present: normal lung sounds bilaterally. Absent: respiratory distress, wheezes, rales, rhonchi, stridor Cardiovascular Exam: Present: regular rate, normal rhythm, normal heart sounds. Absent: systolic murmur, diastolic murmur, rubs, gallop, clicks Neurological exam: Present: alert, oriented X3, CN II-XII intact Psychiatric exam: Present: normal affect, normal mood Skin exam: Present: warm, dry, intact, normal color. Absent: rash Course Vital Signs 02/21/19 02/21/19 02/22/19 23:33 23:44 00:23 Temperature 98.5 F 98.2 F 98.2 F Pulse Rate 76 76 Respiratory 20 20 Rate Blood Pressure 152/88 152/88 O2 Sat by Pulse 97 97 Oximetry Medical Decision Making - Medical Decision Making 28-year-old female patient presents to the emergency department today for evaluation of left-sided neck swelling and pain. She is also reporting scabbed painful lesions to the inside of the left nostril. Physical examination did reveal left submandibular gland swelling and mouth for tenderness consistent with sialoadenitis. She is afebrile. She is reporting worsening pain. She'll be given Bactroban ointment to apply to the nasal passage. She'll be given Augmentin for possible salivary gland infection. She is instructed to obtain lemon drops into second base throughout the day to help resolve obstruction. She is instructed to follow-up with the ENT specialist for further evaluation as soon as possible. Return parameters discussed in detail. She verbalizes understanding and agrees with this plan. Disposition Clinical Impression: Sialoadenitis, Infected nasal abrasion Disposition: HOME SELF-CARE Condition: Good Instructions (If sedation given, give patient instructions): Mupirocin (Into the nose), Wound Infection (ED), Sialoadenitis (ED) Additional Instructions: Apply ointment to the nostril 3 times a day. Complete antibiotic prescription and full. Obtain lemon drop candy [id number] and suck on his throughout the day to stimulate salivation. Follow-up with the ENT specialist for recheck as soon as possible. Follow-up through primary care physician for recheck in 1- 2 days. Return to the emergency department immediately for any new, worsening, or concerning symptoms. Prescriptions: Amoxic-Pot Clav 875-125Mg [Augmentin 875-125] 1 tab PO Q12HR #20 tablet Ibuprofen 800 mg PO TID PRN #30 tablet PRN Reason: Pain Is patient prescribed a controlled substance at d/c from ED?: No Referrals: Dimple Liao DO [Primary Care Provider] - 1-2 days Time of Disposition: 00:12
== END 2019-02-22 00:23 | disposition home or self-care (01) ==
LOC: EC 23:17
DX: K11.20 Sialoadenitis, unspecified (principal); S00.31XA Abrasion of nose, initial encounter; L08.9 Local infection of the skin and subcutaneous tissue, unspecified; Z79.899 Other long term (current) drug therapy; Z87.891 Personal history of nicotine dependence; X58.XXXA Exposure to other specified factors, initial encounter
CPT/HCPCS: 99283

== ENCOUNTER 2019-06-16 00:43 | Emergency (ER) | payer BC, OTHER ==
[2019-06-16 01:02] VITALS: BP 161/86; PULSE 106; RESP 20; TEMP 98.2
[2019-06-16 01:48] LABS: Appearance,Urine Clear (Clear); Bacteria,Urine Rare /hpf; Bilirubin,Urine Negative (Negative); Blood,Urine Trace (Negative); Color,Urine Yellow; Glucose,Urine (UA) Negative (Negative); Ketones,Urine Negative (Negative); Leukocyte Esterase,Urine Large (Negative); Mucus,Urine Rare /hpf; Nitrite,Urine Negative (Negative); Protein,Urine Trace (Negative); RBC,Urine 7 /hpf (0-5); Specific Gravity,Urine 1.018 (1.001-1.035); Squamous Epithelial Cell,Urine 6 /hpf (0-4); Urobilinogen,Urine <2.0 mg/dL (<2.0); WBC,Urine 13 /hpf (0-5)
[2019-06-16] MEDS ORDERED: FLUCONAZOLE 150 MG TAB PO STA (01:59)
[2019-06-16] MEDS ORDERED: ACYCLOVIR 800 MG TAB PO STA (02:00)
[2019-06-16] MEDS ORDERED: cefTRIAXone 250 MG VIAL IM STA (02:02)
--- NOTE | 2019-06-16 02:16 | ED ---
Female Urogenital HPI - General Chief complaint: Urogenital Stated complaint: Trouble Urinating Time Seen by Provider: 06/16/19 01:03 Source: patient, family Mode of arrival: ambulatory Limitations: no limitations - History of Present Illness Initial comments: Hannah rosario pleasant 28-year-old female presents to the emergency department today for burning vaginal pain. states that she has a history of very sensitive skin and they recently changed her laundry detergent over the past 3 days she's noticed swelling and redness of her vulva and significant pain when she urinates. Patient states she's been for a number of years is in a monogamous relationship she has no concern for exposure sexual transmitted infection she has no history of sexual transmitted infections or genital herpes. - Related Data Home Medications Medication Instructions Recorded Confirmed Sucralfate [Carafate] 1 gm PO BID 07/20/17 09/14/17 Phenobarb/Hyoscy/Atropine/Scop 16.2 - 32.4 mg PO Q6H 09/14/17 09/14/17 [ Elixir] Previous Rx's Medication Instructions Recorded Psyllium Husk 100% [Metamucil 6 gm PO BID 30 Days packet 09/14/17 Packet] Amoxic-Pot Clav 875-125Mg 1 tab PO Q12HR #20 tablet 02/22/19 [Augmentin 875-125] Ibuprofen 800 mg PO TID PRN #30 tablet 02/22/19 Acyclovir 400 mg PO TID 10 Days #30 tablet 06/16/19 Doxycycline [Vibramycin] 100 mg PO BID 14 Days #28 cap 06/16/19 Fluconazole [Diflucan] 150 mg PO ONCE #1 tab 06/16/19 Allergies Allergy/AdvReac Type Severity Reaction Status Date / Time No Known Allergies Allergy Verified 06/16/19 01:01 Review of Systems ROS Statement: Those systems with pertinent positive or pertinent negative responses have been documented in the HPI. ROS Other: All systems not noted in ROS Statement are negative. Past Medical History Past Medical History: No Reported History Additional Past Medical History / Comment(s): kidney stones, IBS History of Any Multi-Drug Resistant Organisms: None Reported Past Surgical History: Tonsillectomy Additional Past Surgical History / Comment(s): stent in kidney Past Anesthesia/Blood Transfusion Reactions: No Reported Reaction Past Psychological History: ADD/ADHD, Anxiety Smoking Status: Former smoker Past Alcohol Use History: Occasional Past Drug Use History: None Reported - Past Family History Mother Family Medical History: No Reported History General Exam - General Exam Comments Initial Comments: Physical Exam GENERAL: Patient is well-developed and well-nourished. Patient is nontoxic and well-hydrated and is in no distress. HENT: Normocephalic, Atraumatic. EYES: PERRL, EOMI PULMONARY: Unlabored respirations. CARDIOVASCULAR: RRR Warm and well perfused extremities ABDOMEN: Non-distended SKIN: No rashes or bruising : External genitalia with thick white discharge consistent with vaginal yeast infection There are blisterlike lesions noted on the labia more prominent on the right labia, these will be swabbed for herpes though I do feel they are more likely satellite lesions due to vaginal yeast infection. NEUROLOGIC: Alert and oriented Normal speech Normal gait MUSCULOSKELETAL: Moving all extremities with no apparent injury PSYCHIATRIC: No SI/HI Limitations: no limitations Course Vital Signs 06/16/19 00:58 Temperature 98.2 F Pulse Rate 106 H Respiratory 20 Rate Blood Pressure 161/86 O2 Sat by Pulse 99 Oximetry Medical Decision Making - Medical Decision Making The patient was seen and evaluated history is obtained from patient, external vaginal exam concerning for vaginal yeast infection however there are blisters she will be swabbed for all sexually transmitted infections including herpes. Offered treatment for all of these however patient would like to decline at she has no concern. She is willing to take fluconazole for possible yeast infection. - Lab Data Lab Results 06/16/19 06/16/19 06/16/19 Range/Units 01:25 01:25 02:42 Urine Color Yellow Urine Appearance Clear (Clear) Urine pH 6.0 (5.0-8.0) Ur Specific [place] 1.018 (1.001-1.035) Urine Protein Trace H (Negative) Urine Glucose (UA) Negative (Negative) Urine Ketones Negative (Negative) Urine Blood Trace H (Negative) Urine Nitrite Negative (Negative) Urine Bilirubin Negative (Negative) Urine Urobilinogen <2.0 (<2.0) mg/dL Ur Leukocyte Esterase Large H (Negative) Urine RBC 7 H (0-5) /hpf Urine WBC 13 H (0-5) /hpf Ur Squamous Epith Cells 6 H (0-4) /hpf Urine Bacteria Rare H (None) /hpf Urine Mucus Rare H (None) /hpf Urine HCG, Qual Not Detected (Not Detectd) Trichomonas Ag (Rapid) Negative (Negative) Disposition Clinical Impression: Candidiasis of vagina, Genital herpes simplex Disposition: HOME SELF-CARE Condition: Stable Instructions (If sedation given, give patient instructions): Yeast Infection (ED) Additional Instructions: Today were tested for sexually transmitted infections including gonorrhea, chlamydia, herpes We're treating her empirically for these infections, results will come back in 2-4 days. You can contact the ER if you have any questions. You will be contacted if you have any positive findings. You are being prescribed acyclovir 400 mg to be taken 3 times daily for treatment of presumed genital herpes infection You are being prescribed doxycycline 100 mg 2 times daily which treats chlamydia If you are positive for Gonorrhea you will need to return to the ER or be seen by your PCP for a shot of antibiotics as well Prescriptions: Acyclovir 400 mg PO TID 10 Days #30 tablet Fluconazole [Diflucan] 150 mg PO ONCE #1 tab Doxycycline [Vibramycin] 100 mg PO BID 14 Days #28 cap Is patient prescribed a controlled substance at d/c from ED?: No Referrals: Dimple Liao DO [Primary Care Provider] - 1-2 days
[2019-06-17 09:14] LABS: N. gonorrhoeae,PCR Negative (Neg,Equiv); Neisseria Source Vagina
[2019-06-17 09:16] LABS: C. trachomatis,PCR Negative (Neg,Equiv); Chlamydia trachomatis Source Vagina
== END 2019-06-16 02:45 | disposition home or self-care (01) ==
LOC: EC 00:43
DX: B37.3 Candidiasis of vulva and vagina (principal); A60.00 Herpesviral infection of urogenital system, unspecified; Z79.899 Other long term (current) drug therapy; Z87.891 Personal history of nicotine dependence; Z87.442 Personal history of urinary calculi
CPT/HCPCS: 81001; 81025; 87070; 87086; 87491; 87529; 87591; 87808; 99283